=== PATIENT | male | born 1990 | race Caucasian/White ===

== ENCOUNTER 2018-04-22 10:31 | Emergency (ER) | payer OTHER, SELFPAY ==
[2018-04-22 10:40] VITALS: BP 139/83; PULSE 85; RESP 18; TEMP 36.9; O2SAT 100; BMI 29.7
[2018-04-22 12:12] VITALS: BP 109/52; PULSE 67; RESP 18; O2SAT 100
--- NOTE | 2018-04-22 12:36 | ED.BACK ---
HPI - Back Pain/Injury <DAREK Palomino - Last Filed: 04/22/18 21:53> General Chief Complaint: Back Pain/Injury Stated Complaint: 'CAN'T MOVE/SLEEP ANYTHING' Time Seen by Provider: 04/22/18 12:30 History of Present Illness HPI Narrative: 27-year-old male here for complaint of pain into his right lower back over the past couple of days. He states that the pain has increased over the past couple days and feels like he has a muscle spasm. He denies any trauma to the lower back. He denies any strenuous activity. Increased pain with movement of the lower back. He denies any loss of bladder or bowel control. Patient is ambulatory although it is painful for him to ambulate. Pain radiates down into his right buttocks. No other concerns or complaints. Related Data Home Medications Medication Instructions Recorded Confirmed acetaminophen [Tylenol Extra 1,000 mg PO Q6H PRN 04/22/18 04/22/18 Strength] clonazepam 1 mg PO TID PRN 04/22/18 04/22/18 ibuprofen 800 mg PO QID PRN 04/22/18 04/22/18 Previous Rx's Medication Instructions Recorded cyclobenzaprine 10 mg PO TID PRN #12 tab 04/22/18 prednisone 40 mg PO DAILY #8 tab 04/22/18 Allergies Allergy/AdvReac Type Severity Reaction Status Date / Time No Known Drug Allergies Allergy Verified 04/22/18 10:42 Review of Systems <DAREK Palomino - Last Filed: 04/22/18 21:53> Constitutional Denies chills, Denies fever(s), Denies lethargy and Denies weakness Eyes Denies change in vision, Denies eye discharge, Denies irritation and Denies loss of vision ENT Ears, Nose, Mouth, and Throat: Denies change in voice, Denies neck pain and Denies sore throat Cardiovascular Denies chest pain, Denies irregular heart rhythm, Denies lightheadedness, Denies palpitations, Denies dyspnea, Denies dyspnea on exertion and Denies orthopnea Respiratory Denies cough, Denies dyspnea, Denies dyspnea on exertion and Denies wheezing Genitourinary Denies hematuria, Denies flank pain, Denies urinary incontinence and Denies urinary urgency Musculoskeletal Reports back pain and Denies neck pain Integumentary/Breasts Denies pruritus, Denies erythema, Denies rash and Denies wounds Neurologic Denies loss of vision and Denies weakness Endocrine Denies palpitations Allergic/Immunologic Denies wheezing Exam <DAREK Palomino - Last Filed: 04/22/18 21:53> Initial Vital Signs Initial Vital Signs: Vital Signs Temperature 98.4 F 04/22/18 10:40 Pulse Rate 85 04/22/18 10:40 Respiratory Rate 18 04/22/18 10:40 Blood Pressure 139/83 H 04/22/18 10:40 Pulse Oximetry 100 04/22/18 10:40 Const General: cooperative and well developed Nutritional Appearance: well nourished Orientation: alert, awake, oriented x3 and not confused HENOH Mouth: oral mucosae normal, oropharynx normal and moist mucous membranes Eyes Conjunctivae: conjunctivae normal Sclera: sclerae normal Pupils: PERRL EOM: EOM intact bilaterally Neck Neck: normal visual inspection and full ROM Resp Effort & Inspection: normal respiratory effort, able to speak in complete sentences, no respiratory distress and no use of accessory muscles Auscultation: clear to auscultation bilaterally, no rales, no rhonchi and no wheezes Cardio Rate: regular rate Rhythm: regular rhythm Heart Sounds: no click, no gallops, no murmurs and no rubs Back/Spine/Pelvis Other: Tenderness on palpation to the right lumbar paraspinals with muscle spasm. Distal sensation is intact. Distal range of motion is intact. Distal pulses are intact Skin General: no rashes or lesions noted, No jaundice and No petechiae <Judith Padilla DO - Last Filed: 04/23/18 08:51> Initial Vital Signs Initial Vital Signs: Vital Signs Temperature 98.4 F 04/22/18 10:40 Pulse Rate 85 04/22/18 10:40 Respiratory Rate 18 04/22/18 10:40 Blood Pressure 139/83 H 04/22/18 10:40 Pulse Oximetry 100 04/22/18 10:40 Course <DAREK Palomino - Last Filed: 04/22/18 21:53> Orders Ordered: Discontinued Medications Cyclobenzaprine HCl (Flexeril) 10 mg PO NOW ONE Stop: 04/22/18 12:37 Last Admin: 04/22/18 12:40 Dose: 10 mg Oxycodone/Acetaminophen (Percocet 5/325) 1 tab PO NOW ONE Stop: 04/22/18 12:37 Last Admin: 04/22/18 12:40 Dose: 1 tab Vital Signs - 8 hr 04/22/18 10:40 04/22/18 12:12 Temperature 98.4 F Pulse Rate 85 67 Respiratory Rate 18 18 Blood Pressure 139/83 H Blood Pressure [Left Arm] 109/52 L Pulse Oximetry 100 100 <Judith Padilla DO - Last Filed: 04/23/18 08:51> Orders Ordered: Discontinued Medications Cyclobenzaprine HCl (Flexeril) 10 mg PO NOW ONE Stop: 04/22/18 12:37 Last Admin: 04/22/18 12:40 Dose: 10 mg Oxycodone/Acetaminophen (Percocet 5/325) 1 tab PO NOW ONE Stop: 04/22/18 12:37 Last Admin: 04/22/18 12:40 Dose: 1 tab Vital Signs - 8 hr 04/22/18 10:40 04/22/18 12:12 Temperature 98.4 F Pulse Rate 85 67 Respiratory Rate 18 18 Blood Pressure 139/83 H Blood Pressure [Left Arm] 109/52 L Pulse Oximetry 100 100 MDM - Back Pain/Injury <DAREK Palomino - Last Filed: 04/22/18 21:53> MDM Narrative Medical decision making narrative: Signs and symptoms presents as lumbar strain. He is prescribed cyclobenzaprine along with [id number] ibuprofen and short course of prednisone. Follow up with primary care provider in the next few days for re-evaluation. Rest area. For any worsening symptoms return to the emergency room. Discharge Plan Departure Patient Disposition: Home, Self-Care Clinical Impression: Strain of lumbar region Discharge Date/Time: 04/22/18 13:03 Interventions: ED Discharge Assessment Last Done: 04/22/18 13:01 Instructions: DI for Back Pain With Sciatica Activity Restrictions/Additional Instructions: Signs and symptoms presents as strain two lower back with muscle spasm. You have been prescribed muscle relaxers to help loosen up the muscle spasm. Use [id number] ibuprofen for anti-inflammatory effects and discomfort. Short course of prednisone steroid as also been prescribed to help with anti-inflammatory effects. Follow up with her primary care provider. Return emergency room for any worsening symptoms. Gentle range of motion to the painful areas to help keep muscles loose. Return emergency room for any worsening symptoms. Prescriptions: New cyclobenzaprine 10 mg tablet 10 mg PO TID PRN (Reason: muscle spasm) Qty: 12 RF: 0 prednisone 20 mg tablet 40 mg PO DAILY Qty: 8 RF: 0 No Action ibuprofen 800 mg Tablet 800 mg PO QID PRN (Reason: Back Pain) RF: 0 clonazepam 1 mg tablet 1 mg PO TID PRN (Reason: Anxiety) RF: 0 acetaminophen [Tylenol Extra Strength] 500 mg Tablet 1,000 mg PO Q6H PRN (Reason: Back Pain) RF: 0 Referrals: [facility] [Provider Group] <Judith Padilla, - Last Filed: 04/23/18 08:51> [facility]: I was immediately available in the department for consultation. Documentation has been reviewed. I agree with assessment and plan.
[2018-04-22] MEDS: CYCLOBENZAPRINE 10 MG TABLET PO (12:40)
[2018-04-22] MEDS: OXYCODONE/ACETAMINOPHEN 5/325 TABLET 1 TAB PO (12:40)
--- NOTE | 2018-04-22 12:42 | ED_ITS ---
HPI - Back Pain/Injury <DAREK Palomino - Last Filed: 04/22/18 21:53> General Chief Complaint: Back Pain/Injury Stated Complaint: 'CAN'T MOVE/SLEEP ANYTHING' Time Seen by Provider: 04/22/18 12:30 History of Present Illness HPI Narrative: 27-year-old male here for complaint of pain into his right lower back over the past couple of days. He states that the pain has increased over the past couple days and feels like he has a muscle spasm. He denies any trauma to the lower back. He denies any strenuous activity. Increased pain with movement of the lower back. He denies any loss of bladder or bowel control. Patient is ambulatory although it is painful for him to ambulate. Pain radiates down into his right buttocks. No other concerns or complaints. Related Data Home Medications Medication Instructions Recorded Confirmed acetaminophen [Tylenol Extra 1,000 mg PO Q6H PRN 04/22/18 04/22/18 Strength] clonazepam 1 mg PO TID PRN 04/22/18 04/22/18 ibuprofen 800 mg PO QID PRN 04/22/18 04/22/18 Previous Rx's Medication Instructions Recorded cyclobenzaprine 10 mg PO TID PRN #12 tab 04/22/18 prednisone 40 mg PO DAILY #8 tab 04/22/18 Allergies Allergy/AdvReac Type Severity Reaction Status Date / Time No Known Drug Allergies Allergy Verified 04/22/18 10:42 Review of Systems <DAREK Palomino - Last Filed: 04/22/18 21:53> Constitutional Denies chills, Denies fever(s), Denies lethargy and Denies weakness Eyes Denies change in vision, Denies eye discharge, Denies irritation and Denies loss of vision ENT Ears, Nose, Mouth, and Throat: Denies change in voice, Denies neck pain and Denies sore throat Cardiovascular Denies chest pain, Denies irregular heart rhythm, Denies lightheadedness, Denies palpitations, Denies dyspnea, Denies dyspnea on exertion and Denies orthopnea Respiratory Denies cough, Denies dyspnea, Denies dyspnea on exertion and Denies wheezing Genitourinary Denies hematuria, Denies flank pain, Denies urinary incontinence and Denies urinary urgency Musculoskeletal Reports back pain and Denies neck pain Integumentary/Breasts Denies pruritus, Denies erythema, Denies rash and Denies wounds Neurologic Denies loss of vision and Denies weakness Endocrine Denies palpitations Allergic/Immunologic Denies wheezing Exam <DAREK Palomino - Last Filed: 04/22/18 21:53> Initial Vital Signs Initial Vital Signs: Vital Signs Temperature 98.4 F 04/22/18 10:40 Pulse Rate 85 04/22/18 10:40 Respiratory Rate 18 04/22/18 10:40 Blood Pressure 139/83 H 04/22/18 10:40 Pulse Oximetry 100 04/22/18 10:40 Const General: cooperative and well developed Nutritional Appearance: well nourished Orientation: alert, awake, oriented x3 and not confused HENMD Mouth: oral mucosae normal, oropharynx normal and moist mucous membranes Eyes Conjunctivae: conjunctivae normal Sclera: sclerae normal Pupils: PERRL EOM: EOM intact bilaterally Neck Neck: normal visual inspection and full ROM Resp Effort & Inspection: normal respiratory effort, able to speak in complete sentences, no respiratory distress and no use of accessory muscles Auscultation: clear to auscultation bilaterally, no rales, no rhonchi and no wheezes Cardio Rate: regular rate Rhythm: regular rhythm Heart Sounds: no click, no gallops, no murmurs and no rubs Back/Spine/Pelvis Other: Tenderness on palpation to the right lumbar paraspinals with muscle spasm. Distal sensation is intact. Distal range of motion is intact. Distal pulses are intact Skin General: no rashes or lesions noted, No jaundice and No petechiae <Judith Padilla DO - Last Filed: 04/23/18 08:51> Initial Vital Signs Initial Vital Signs: Vital Signs Temperature 98.4 F 04/22/18 10:40 Pulse Rate 85 04/22/18 10:40 Respiratory Rate 18 04/22/18 10:40 Blood Pressure 139/83 H 04/22/18 10:40 Pulse Oximetry 100 04/22/18 10:40 Course <DAREK Palomino - Last Filed: 04/22/18 21:53> Orders Ordered: Discontinued Medications Cyclobenzaprine HCl (Flexeril) 10 mg PO NOW ONE Stop: 04/22/18 12:37 Last Admin: 04/22/18 12:40 Dose: 10 mg Oxycodone/Acetaminophen (Percocet 5/325) 1 tab PO NOW ONE Stop: 04/22/18 12:37 Last Admin: 04/22/18 12:40 Dose: 1 tab Vital Signs - 8 hr 04/22/18 10:40 04/22/18 12:12 Temperature 98.4 F Pulse Rate 85 67 Respiratory Rate 18 18 Blood Pressure 139/83 H Blood Pressure [Left Arm] 109/52 L Pulse Oximetry 100 100 <Judith Padilla DO - Last Filed: 04/23/18 08:51> Orders Ordered: Discontinued Medications Cyclobenzaprine HCl (Flexeril) 10 mg PO NOW ONE Stop: 04/22/18 12:37 Last Admin: 04/22/18 12:40 Dose: 10 mg Oxycodone/Acetaminophen (Percocet 5/325) 1 tab PO NOW ONE Stop: 04/22/18 12:37 Last Admin: 04/22/18 12:40 Dose: 1 tab Vital Signs - 8 hr 04/22/18 10:40 04/22/18 12:12 Temperature 98.4 F Pulse Rate 85 67 Respiratory Rate 18 18 Blood Pressure 139/83 H Blood Pressure [Left Arm] 109/52 L Pulse Oximetry 100 100 MDM - Back Pain/Injury <DAREK Palomino - Last Filed: 04/22/18 21:53> MDM Narrative Medical decision making narrative: Signs and symptoms presents as lumbar strain. He is prescribed cyclobenzaprine along with [id number] ibuprofen and short course of prednisone. Follow up with primary care provider in the next few days for re-evaluation. Rest area. For any worsening symptoms return to the emergency room. Discharge Plan Departure Patient Disposition: Home, Self-Care Clinical Impression: Strain of lumbar region Discharge Date/Time: 04/22/18 13:03 Interventions: ED Discharge Assessment Last Done: 04/22/18 13:01 Instructions: DI for Back Pain With Sciatica Activity Restrictions/Additional Instructions: Signs and symptoms presents as strain two lower back with muscle spasm. You have been prescribed muscle relaxers to help loosen up the muscle spasm. Use [id number] ibuprofen for anti-inflammatory effects and discomfort. Short course of prednisone steroid as also been prescribed to help with anti- inflammatory effects. Follow up with her primary care provider. Return emergency room for any worsening symptoms. Gentle range of motion to the painful areas to help keep muscles loose. Return emergency room for any worsening symptoms. Prescriptions: New cyclobenzaprine 10 mg tablet 10 mg PO TID PRN (Reason: muscle spasm) Qty: 12 RF: 0 prednisone 20 mg tablet 40 mg PO DAILY Qty: 8 RF: 0 No Action ibuprofen 800 mg Tablet 800 mg PO QID PRN (Reason: Back Pain) RF: 0 clonazepam 1 mg tablet 1 mg PO TID PRN (Reason: Anxiety) RF: 0 acetaminophen [Tylenol Extra Strength] 500 mg Tablet 1,000 mg PO Q6H PRN (Reason: Back Pain) RF: 0 Referrals: [facility] [Provider Group] <Judith Padilla, - Last Filed: 04/23/18 08:51> [facility]: I was immediately available in the department for consultation. Documentation has been reviewed. I agree with assessment and plan.
== END 2018-04-22 13:03 | disposition home or self-care (01) ==
PROVIDERS: Emergency Provider Nurse Practitioner Family
DX: S39.012A Strain of muscle, fascia and tendon of lower back, initial encounter (principal)
CPT/HCPCS: 99282; 99283